=== PATIENT | female | born 1945 | race Caucasian/White ===

== ENCOUNTER → 2018-07-31 | Outpatient (CLI) | payer MEDICARE, OTHER ==
[~2018-07-31] MED LIST: AMLO10TA4 PO; LOSA25TA2 PO; METF-444 PO; OMEP20CA10 PO
== END | disposition home or self-care (01) ==
LOC: RAH 07-30 10:22 → EDSTATUS 07-30 10:30 → RAH 11:00
PROVIDERS: ATTEND Internal Medicine
DX: E04.1 Nontoxic single thyroid nodule (principal)
CPT/HCPCS: 78014; A9516